=== PATIENT | female | born 1990 | race Caucasian/White ===

== ENCOUNTER 2016-06-12 20:29 | Emergency (ER) ==
[2016-06-12 21:11] VITALS: BP 139/79
--- NOTE | 2016-06-12 21:43 | PROVIDER DOCUMENTATION ---
HPI-Rash/Wound/ReCheck - General Chief Complaint: Abscess Stated Complaint: KNOT ON SIDE OF FACE Time Seen by Provider: 06/12/16 21:20 Source: patient Allergies/Adverse Reactions: Allergies Allergy/AdvReac Type Severity Reaction Status Date / Time pineapple Allergy Severe HIVES Verified 01/17/16 13:32 - History of Present Illness-Dermatology Nature of Presenting Problem: 25 year old F presents to the ED with a cc of a knot to right side of face. PT states that onset was 2 days ago. Location: reports: face Quality: reports: painful Severity: reports: mild Onset/Duration: reports: 2 days ago Timing: reports: still present Context/Associated Symptoms: reports: abscess Identifiable cause?: No Locality of Occurance: Home Similar Symptoms Previously?: No Recently seen or treated by another doctor?: No Review of Systems - Adult - REVIEW OF SYSTEMS - ADULT Constitutional: denies: chills, fever Eyes: reports: no symptoms reported Ears, Nose, Mouth & Throat: reports: other (facial swelling) Cardiovascular: denies: chest pain, palpitations Respiratory: denies: cough, shortness of breath Gastrointestinal: denies: nausea, vomiting Genitourinary: reports: no symptoms reported Musculoskeletal: reports: no symptoms reported Integumentary: reports: no symptoms reported Neurological: reports: no symptoms reported Psychiatric: reports: no symptoms reported Endocrine: reports: no symptoms reported Hematologic/Lymphatic: reports: no symptoms reported Allergic/Immunologic: reports: no symptoms reported All Other Systems: Reviewed and Negative Past History - Adult - PAST MEDICAL HISTORY-ADULT Review of Records: reports: Nursing Assessment Review, Medications Reviewed Major Childhood Illnesses: reports: denies history Other Conditions: reports: denies history - PRIOR SURGERIES/PROCEDURES Surgical/Procedure History: reports: reviewed, not pertinent - IMMUNIZATION STATUS Childhood Immunizations: See Nurse Assessment Flu Vaccine: See Nurse Assessment - FAMILY HISTORY Family History: reviewed, not pertinent - SOCIAL HISTORY Smoking: cigarettes, greater than 1 pack/day Provider spent 3-5 mins advising pt. on dangers of tobacco.: Discussed manners to quit use, and f/u contacts for add'l counseling. Substance Use: none/never Alcohol Use Frequency: never Physical Exam-General - PHYSICAL EXAM-ADULT Initial Vital Signs Reviewed: Yes - CONSTITUTIONAL General Appearance: appears well, alert, no apparent distress - HEAD, EARS, NOSE, MOUTH & THROAT HENMT: other (bernice sized abscess to right face) - RESPIRATORY Respiratory: chest non-tender, lungs clear, normal breath sounds - CARDIOVASCULAR Cardiovascular: normal peripheral pulses, regular rate, rhythm, no edema - SKIN Integumentary: normal color, normal turgor, warm/dry - PSYCHIATRIC Psych/Mental Status: normal mood/affect, normal thought content, normal thought process, oriented x 3 Progress - PLAN OF CARE/RESULTS Progress/Plan/Lab Results: plan of care: I&D Vital Signs - 24 hr 06/12/16 21:08 Temperature 97.2 F L Pulse Rate 77 Respiratory 18 Rate Blood Pressure 139/79 O2 Sat by Pulse 100 Oximetry Pt given results and will be d/c home w/o rx to follow up with PCP. Pt verbally understood instructions. PT remained clinically stable throughout the course of the ED stay and will return if symptoms worsen. Procedures - INCISION & DRAINAGE Abscess Type: Cyst (sebacous) Anesthetic: 1%, Lidocaine/Xylocaine Blade Size: needle lancet Packing placed?: No Sterile Dressing Applied?: No Drainage: Large Amount, Purulent Departure - Departure Time of Disposition Order: 21:42 DIAGNOSIS: Sebaceous cyst Disposition: HOME 01 Certified Medical Emergency: Emergent Condition: Good Additional Instructions: Follow up with primary care doctor. Return to ED for any new or worsening symptoms. ED Follow Up Instructions: You have been treated by a care provider in the Emergency Department. These instructions are being provided to you so you can have an understanding of how to care for yourself upon discharge. Upon discharge from the Emergency Department, you are responsible for making arrangements for follow-up care by a physician of your choice. Take all prescribed medications as directed. Return to the Emergency Department immediately for any new or worsening symptoms. You may call the Physician Referral phone number at [phone] to obtain a list of Physicians who are taking new patients. Prescriptions: Sulfamethoxazole/Tmp D.s. [Septra Ds] 1 each PO BID #20 tablet Referrals: Reina Liang MD [STAFF PHYSICIAN] - Forms: Return to School/Parent Work Instructions: Sulfamethoxazole; Trimethoprim, SMX-TMP tablets Attestation - Scribe Verification/Attestation Scribe:: Melinda Llanos Acting as Scribe for:: Pardeep Beatty Scribe documention review:: This chart was documented by a scribe and accurately reflects the service the provider performed and the decisions made by the provider. Physician Attestation - Physician Attestation I, the provider, attest to the following statement:: Pardeep Beatty Physician documentation Attestation:: This documentation recorded by the scribe accurately reflects the service I personally performed and the decisions made by me.
== END 2016-06-12 22:05 | disposition home or self-care (01) ==
LOC: P.ED 20:29
DX: L72.3 Sebaceous cyst (principal); L02.01 Cutaneous abscess of face; F17.210 Nicotine dependence, cigarettes, uncomplicated; Z71.6 Tobacco abuse counseling
CPT/HCPCS: 99282

== ENCOUNTER 2016-08-21 19:55 | Emergency (ER) ==
[2016-08-21 20:08] LABS: URINE CULTURE PL NEEDED? NO; URINE SOURCE CLEAN CATCH
[2016-08-21 20:17] LABS: BILIRUBIN URINE NEGATIVE (NEGATIVE); BLOOD URINE 2+ (NEGATIVE); CLARITY CLEAR (CLEAR); COLOR YELLOW; GLUCOSE URINE NEGATIVE (NEGATIVE); LEUKOCYTES URINE NEGATIVE (NEGATIVE); NITRITE URINE NEGATIVE (NEGATIVE); PROTEIN URINE TRACE mg/dL (NEGATIVE); UROBILINOGEN URINE NORMAL
[2016-08-21 20:43] LABS: URINE EPITHELIAL CELLS <10 /HPF (<10)
--- NOTE | 2016-08-21 20:57 | PROVIDER DOCUMENTATION ---
HPI-Abdominal Pain/GI Problem - General Chief Complaint: Abdominal Pain Stated Complaint: 8WKS PREG/SHARP AB PAIN Time Seen by Provider: 08/21/16 20:51 Source: patient Allergies/Adverse Reactions: Patient Allergies Allergy/AdvReac Type Severity Reaction Status Date / Time pineapple Allergy Severe HIVES Verified 01/17/16 13:32 Home Medications: Home Medication List Medication Instructions Recorded Confirmed Last Taken Type Sulfamethoxazole/Tmp D.s. [Septra 1 each PO BID #20 tablet 06/12/16 Unknown Rx Ds] Clindamycin [Cleocin] 150 mg PO Q6HR #30 capsule 06/16/16 Unknown Rx Pnv No.118/Iron Fumarate/FA 1 each PO DAILY #90 tab.chew 08/21/16 Unknown Rx [ 19 Chewable Tablet] Promethazine [Phenergan] 25 mg PO Q6H PRN PRN #20 tablet 08/21/16 Unknown Rx - History of Present Illness-ABD Nature of Presenting Problems: Pt is a 25 y/o F c chief complaint of abd pain throughout her abd and bilat flank pain today. Pt is in her first trimester of but has not been seen by OBGYN. Pt has not had an US. Pt denies vaginal d/c. She has had constipation and decreased appetite due to nausea. On arrival, pt is in minimal distress. Pt is P4, G11, A6(5miscarriages 1 molar preg). Pt states all her miscarriages were prior to any live births starting at age 14. First live at age 20. She is unsure whey she had multiple miscarriages. Review of Systems - Adult - REVIEW OF SYSTEMS - ADULT Constitutional: reports: no symptoms reported. denies: chills, fatique Eyes: reports: no symptoms reported. denies: blurred vision, double vision Ears, Nose, Mouth & Throat: reports: no symptoms reported. denies: ear pain, nose pain Cardiovascular: reports: no symptoms reported. denies: chest pain, orthopnea Respiratory: reports: no symptoms reported. denies: cough, shortness of breath , wheezing Gastrointestinal: reports: abdominal pain, constipation, nausea Genitourinary: reports: no symptoms reported. denies: dysuria, frequent UTI's, hematuria, hesitency Musculoskeletal: reports: no symptoms reported. denies: joint pain, joint swelling Integumentary: reports: no symptoms reported. denies: hives, itching, rash Neurological: reports: no symptoms reported. denies: numbness, paresthesia Psychiatric: reports: no symptoms reported. denies: anxiety, emotional problems Endocrine: reports: no symptoms reported. denies: cold intolerance, heat intolerance Hematologic/Lymphatic: reports: no symptoms reported. denies: blood clots, low blood count Allergic/Immunologic: reports: no symptoms reported. denies: food allergy, frequent infections All Other Systems: Reviewed and Negative Past History - Adult - PAST MEDICAL HISTORY-ADULT Review of Records: reports: Old Records Reviewed, Nursing Assessment Review, Medications Reviewed, Social history reviewed & non-contributory. Major Childhood Illnesses: reports: denies history Cardiovascular: reports: denies history Respiratory: reports: denies history Gastrointestinal: reports: denies history Obstetrical/Gynecological: reports: other (Pt is P4, G11, A6(5miscarriages 1 molar preg)) Genitourinary: reports: denies history Musculoskeletal: reports: denies history Neurological: reports: denies history Endocrine/Immune: reports: denies history Other Conditions: reports: denies history - PRIOR SURGERIES/PROCEDURES Surgical/Procedure History: reports: reviewed, not pertinent - IMMUNIZATION STATUS Childhood Immunizations: See Nurse Assessment Flu Vaccine: See Nurse Assessment - FAMILY HISTORY Family History: reviewed, not pertinent Physical Exam-General - PHYSICAL EXAM-ADULT Initial Vital Signs Reviewed: Yes - CONSTITUTIONAL General Appearance: appears well, alert, no apparent distress - EYES Eyes: PERRL/EOMI, pink conjunctivae - HEAD, EARS, NOSE, MOUTH & THROAT HENMT: normocephalic/atraumatic, moist mucous membranes, normal ENT inspection - NECK Neck: non-tender, full range of motion - RESPIRATORY Respiratory: chest non-tender, lungs clear, normal breath sounds - CARDIOVASCULAR Cardiovascular: normal peripheral pulses, regular rate, rhythm, no edema - GASTROINTESTINAL (ABDOMEN) Abdominal Exam: normal bowel sounds, soft, tenderness (mild diffuse) - SKIN Integumentary: normal color, normal turgor, warm/dry - NEUROLOGIC Neurologic: grossly normal, no motor/sensory deficits - PSYCHIATRIC Psych/Mental Status: normal mood/affect, normal thought content, normal thought process, oriented x 3 Progress - PLAN OF CARE/RESULTS Progress/Plan/Lab Results: Orders Category Date Time Status Saline Loc NOW Care 08/21/16 19:57 Active US OBS COMPLETE < 14 WKS [US] Stat Exams 08/21/16 20:08 Taken CBC WITH DIFF [HEME] Stat Lab 08/21/16 20:50 Completed COMPREHENSIVE METABOLIC PANEL [CHEM] Stat Lab 08/21/16 20:50 Completed QUANT TEST Stat Lab 08/21/16 20:50 Completed RHOGAM WORKUP [BBK] Stat Lab 08/21/16 20:[address] W/POSS RFLX CULT [URINALYSIS] Stat Lab 08/21/16 20:05 Completed Laboratory Tests 08/21/16 08/21/16 08/21/16 20:05 20:50 20:50 WBC RBC Hgb Hct MCV MCH MCHC RDW Std Deviation Plt Count MPV Immature Gran % (Auto) Neut % (Auto) Lymph % (Auto) [place] % (Auto) Eos % (Auto) Baso % (Auto) Immature Gran # (Auto) Neut # (Auto) Lymph # (Auto) [place] # (Auto) Eos # (Auto) Baso # (Auto) Sodium 134 L Potassium 3.3 L Chloride 100 Carbon Dioxide 24 L Anion Gap 11 BUN 9 Creatinine 0.4 L Estimated GFR/1.73 m2 > 60 BUN/Creatinine Ratio 23 Glucose 84 Calculated Osmolality 266 Calcium 9.2 Total Bilirubin 0.20 AST 30 ALT 47 H Alkaline Phosphatase 74 Total Protein 7.0 Albumin 4.1 Globulin 3.0 Albumin/Globulin Ratio 1.0 Ser , Semi-Qnt 190032.0 Urine Source CLEAN CATCH Urine Color YELLOW Urine Clarity CLEAR Urine pH 7.0 Ur Specific [place] 1.010 Urine Protein TRACE A Urine Ketones NEGATIVE Urine Blood 2+ A Urine Nitrite NEGATIVE Urine Bilirubin NEGATIVE Urine Urobilinogen NORMAL Urine Microscopic RBC 10-20 A Urine WBC NEGATIVE Ur Epithelial Cells <10 Urine Bacteria 1+ Urine Glucose NEGATIVE ABO/Rh RhIG Candidate? 08/21/16 08/21/16 20:50 20:50 WBC 10.22 RBC 4.74 Hgb 14.0 Hct 41.5 MCV 87.6 MCH 29.5 MCHC 33.7 RDW Std Deviation 13.6 Plt Count 217 MPV 10.4 Immature Gran % (Auto) 0.4 Neut % (Auto) 70.3 Lymph % (Auto) 22.7 [place] % (Auto) 5.7 Eos % (Auto) 0.7 Baso % (Auto) 0.2 Immature Gran # (Auto) 0.04 Neut # (Auto) 7.19 H Lymph # (Auto) 2.32 [place] # (Auto) 0.58 Eos # (Auto) 0.07 Baso # (Auto) 0.02 Sodium Potassium Chloride Carbon Dioxide Anion Gap BUN Creatinine Estimated GFR/1.73 m2 BUN/Creatinine Ratio Glucose Calculated Osmolality Calcium Total Bilirubin AST ALT Alkaline Phosphatase Total Protein Albumin Globulin Albumin/Globulin Ratio Ser , Semi-Qnt Urine Source Urine Color Urine Clarity Urine pH Ur Specific [place] Urine Protein Urine Ketones Urine Blood Urine Nitrite Urine Bilirubin Urine Urobilinogen Urine Microscopic RBC Urine WBC Ur Epithelial Cells Urine Bacteria Urine Glucose ABO/Rh O POSITIVE RhIG Candidate? NO Vital Signs - 24 hr 08/21/16 19:56 Temperature 97.6 F Pulse Rate 101 H Respiratory 18 Rate Blood Pressure 134/74 O2 Sat by Pulse 100 Oximetry - ULTRASOUND (By Radiology) 1 US Study: Transvaginal Impression: Normal (Normal ultrasound; 8w3d; IUP; FHR 173) Departure - Departure Time of Disposition Order: 22:33 DIAGNOSIS: Nausea Normal IUP (intrauterine ) on ultrasound Qualifiers: Trimester: first trimester Qualified Code(s): Z34.91 - Encounter for supervision of normal , unspecified, first trimester Abdominal pain Qualifiers: Abdominal location: generalized Qualified Code(s): R10.84 - Generalized abdominal pain Disposition: HOME 01 Certified Medical Emergency: Emergent Condition: Stable Additional Instructions: ED Follow Up Instructions: You have been treated by a care provider in the Emergency Department. These instructions are being provided to you so you can have an understanding of how to care for yourself upon discharge. Upon discharge from the Emergency Department, you are responsible for making arrangements for follow-up care by a physician of your choice. Take all prescribed medications as directed. Return to the Emergency Department immediately for any new or worsening symptoms. You may call the Physician Referral phone number at [phone] to obtain a list of Physicians who are taking new patients. Prescriptions: Promethazine [Phenergan] 25 mg PO Q6H PRN PRN #20 tablet PRN Reason: Nausea Pnv No.118/Iron Fumarate/FA [ 19 Chewable Tablet] 1 each PO DAILY #90 tab.chew Attestation - Physician/ MEET Attestation Patient care was provided by Advanced Practice Provider:: Yes Advanced Practice Provider:: [facility] [place] Advanced Practice Provider documentation review:: The Mid-level provider documentation, treatment plan and medical decision making was reviewed by the physician who agrees with all treatment and medical decision making by the MLP.
[2016-08-21 21:14] LABS: MANUAL DIFF NEEDED? NO
[2016-08-21 21:19] LABS: BASO% 0.2 % (0.0-0.8); EOS# 0.07 X1000 (0.0-0.7); EOS% 0.7 % (0.0-10.0); HEMATOCRIT 41.5 % (37.0-47.0); IMM GRAN# 0.04 X1000 (0.0-0.04); IMM GRAN% 0.4 % (0.0-0.5); LYMPH# 2.32 X1000 (1.2-3.4); LYMPH% 22.7 % (20.5-51.1); MCH 29.5 PG (27-31); MCHC 33.7 g/dL (33-37); MCV 87.6 FL (81-99); MONO# 0.58 X1000 (0.11-0.59); MONO% 5.7 % (1.7-9.3); MPV 10.4 FL (7.4-10.4); NEUT% 70.3 % (42.2-75.2); PLT 217 X1000 (130-400); RBC 4.74 XMIL (4.2-5.4)
[2016-08-21 21:47] LABS: AGAP 11; ALBUMIN 4.1 g/dL (3.5-5.0); ALKALINE PHOSPHATASE 74 U/L (32-104); BUN 9 mg/dL (8-22); CALCIUM 9.2 mg/dL (8.8-10.2); CHLORIDE 100 mmol/L (98-107); COSMO 266; GOT 30 U/L (10-30); GPT 47 U/L (10-36); POTASSIUM 3.3 mmol/L (3.5-5.1); SODIUM 134 mmol/L (136-145); TCO2 24 mmol/L (25-35)
[2016-08-21 22:50] VITALS: BP 113/77
--- NOTE | 2016-08-21 23:34 | Diag Imaging Result Document ---
PROCEDURE NAME: US OBS COMPLETE < 14 WKS - 08/21/2016 TRANSVAGINAL PELVIC ULTRASOUND: FINDINGS: There is an intrauterine with an estimated gestational age of 8 weeks and 3 days plus or minus 5 days. heart rate is present at 171 beats per minute. The right ovary measures 3.0 cm in length. No abnormality to the right ovary. The left ovary is not identified. No adnexal mass. Trace pelvic fluid. Estimated date of delivery of 03/30/2017. IMPRESSION: Intrauterine with an estimated gestational age of 8 weeks and 3 days with a heart rate of 171 beats per minute.
== END 2016-08-21 22:58 | disposition home or self-care (01) ==
LOC: P.ED 19:55
DX: O26.891 Other specified pregnancy related conditions, first trimester (principal); R11.0 Nausea; R10.84 Generalized abdominal pain; K59.00 Constipation, unspecified; R10.819 Abdominal tenderness, unspecified site; Z3A.08 8 weeks gestation of pregnancy
CPT/HCPCS: 76801; 80053; 81001; 84702; 85025; 86900; 86901